=== PATIENT | male | born 1990 | race Hispanic/Latino ===

== ENCOUNTER 2022-12-04 15:17 | Emergency (ER) | payer SELFPAY ==
[~2022-12-04] VITALS: Ht 172.7 cm; Wt 95.3 kg
[2022-12-04 17:56] VITALS: BP 118/82
== END 2022-12-04 18:05 | disposition home or self-care (01) | DRG 153 ==
LOC: ED 15:17
DX: J31.0 Chronic rhinitis (principal); B34.9 Viral infection, unspecified; Z20.822 Contact with and (suspected) exposure to COVID-19; F17.210 Nicotine dependence, cigarettes, uncomplicated

== ENCOUNTER 2023-01-19 10:26 | Emergency (ER) | payer BC ==
[~2023-01-19] VITALS: Ht 172.7 cm; Wt 92.2 kg
[2023-01-19 10:37] VITALS: BP 131/79
[2023-01-19] MEDS ORDERED: IBUPROFEN600 MG PO (12:19)
[2023-01-19 12:25] VITALS: BP 131/79
== END 2023-01-19 12:29 | disposition home or self-care (01) | DRG 313 ==
LOC: ED 10:26
DX: R07.89 Other chest pain (principal); E11.9 Type 2 diabetes mellitus without complications

== ENCOUNTER 2023-01-21 17:08 | Emergency (ER) | payer BC ==
[~2023-01-21] VITALS: Ht 172.7 cm; Wt 92.0 kg
[~2023-01-21 17:08] MED LIST: IBUPROFEN600 MG PO
[2023-01-21] MEDS ORDERED: METHOCARBAMOL500 MG PO (18:09)
[2023-01-21 18:54] VITALS: BP 112/79
== END 2023-01-21 19:02 | disposition home or self-care (01) | DRG 206 ==
LOC: ED 17:08
DX: M94.0 Chondrocostal junction syndrome [Tietze] (principal); E11.9 Type 2 diabetes mellitus without complications; F17.210 Nicotine dependence, cigarettes, uncomplicated

== ENCOUNTER 2023-02-16 17:15 | Emergency (ER) | payer BC ==
[~2023-02-16] VITALS: Ht 172.7 cm; Wt 95.3 kg
[~2023-02-16 17:15] MED LIST changes: +METHOCARBAMOL500 MG PO
[2023-02-16 19:21] VITALS: BP 131/72
== END 2023-02-16 19:22 | disposition home or self-care (01) | DRG 639 ==
LOC: ED 17:15
DX: E11.65 Type 2 diabetes mellitus with hyperglycemia (principal); F17.210 Nicotine dependence, cigarettes, uncomplicated; Z79.4 Long term (current) use of insulin